=== PATIENT | male | born 1985 | race Hispanic/Latino ===

== ENCOUNTER → 2024-08-19 09:19 | Outpatient (REF) | payer OTHER, SELFPAY ==
[2024-08-19 12:13] LABS: ALT (SGPT) 51 U/L (0-50); AST (SGOT) 34 U/L (17-59); Albumin 4.5 g/dl (3.5-5.0); Alkaline Phosphatase 53 U/L (38-126); Blood Urea Nitrogen 19 mg/dl (9-20); Calcium 9.1 mg/dl (8.4-10.2); Carbon Dioxide 27 mmol/L (22-30); Chloride 101 mmol/L (98-107); Glucose 118 mg/dl (70-99); Potassium 4.4 mmol/L (3.5-5.1); Sodium 138 mmol/L (135-145); Total Bilirubin 0.6 mg/dl (0.2-1.3); Total Protein 7.2 g/dl (6.3-8.2); eGFR > 60.00
== END ==
LOC: CLINIC 09:19
PROVIDERS: ATTENDING PHYSICIAN Nurse Practitioner Adult Health
DX: R73.03 Prediabetes (principal)
CPT/HCPCS: 36415; 80053; 83036

== ENCOUNTER → 2024-10-27 18:52 | Outpatient (REF) | payer OTHER, SELFPAY | LOC: RAD 18:52 | PROVIDERS: ATTENDING PHYSICIAN Nurse Practitioner Adult Health | DX: R73.03 Prediabetes (principal); C47.9 Malignant neoplasm of peripheral nerves and autonomic nervous system, unspecified | CPT/HCPCS: 71046 ==

== ENCOUNTER → 2024-12-17 11:21 | Outpatient (REF) | payer OTHER, SELFPAY | LOC: RAD 11:21 | PROVIDERS: ATTENDING PHYSICIAN Nurse Practitioner Adult Health | DX: C47.9 Malignant neoplasm of peripheral nerves and autonomic nervous system, unspecified (principal) | CPT/HCPCS: 76881 ==

== ENCOUNTER → 2025-02-18 10:19 | Outpatient (REF) | payer OTHER, SELFPAY ==
[2025-02-18 11:16] LABS: Glycohemoglobin (HgbA1c) 5.8 % (4.0-5.6)
[2025-02-18 11:54] LABS: ALT (SGPT) 35 U/L (0-50); AST (SGOT) 28 U/L (17-59); Albumin 4.8 g/dl (3.5-5.0); Alkaline Phosphatase 62 U/L (38-126); Blood Urea Nitrogen 16 mg/dl (9-20); Calcium 9.4 mg/dl (8.4-10.2); Carbon Dioxide 24 mmol/L (22-30); Chloride 106 mmol/L (98-107); Glucose 108 mg/dl (70-99); Potassium 4.2 mmol/L (3.5-5.1); Sodium 140 mmol/L (135-145); Total Bilirubin 0.8 mg/dl (0.2-1.3); Total Protein 7.5 g/dl (6.3-8.2); eGFR > 60.00
== END ==
LOC: CLINIC 10:19
PROVIDERS: ATTENDING PHYSICIAN Nurse Practitioner Adult Health
DX: R73.03 Prediabetes (principal)
CPT/HCPCS: 36415; 80053; 83036

== ENCOUNTER → 2025-05-27 11:11 | Outpatient (REF) | payer OTHER, SELFPAY | LOC: CLINIC 11:11 | PROVIDERS: ATTENDING PHYSICIAN Nurse Practitioner Adult Health | DX: C47.9 Malignant neoplasm of peripheral nerves and autonomic nervous system, unspecified (principal) | CPT/HCPCS: 71046 ==

== ENCOUNTER → 2025-06-10 10:34 | Outpatient (REF) | payer OTHER, SELFPAY | LOC: CLINIC 10:34 | PROVIDERS: ATTENDING PHYSICIAN Nurse Practitioner Adult Health | DX: C47.9 Malignant neoplasm of peripheral nerves and autonomic nervous system, unspecified (principal) | CPT/HCPCS: 76881 ==